=== PATIENT | female | born 1955 | race Caucasian/White ===

== ENCOUNTER → 2016-07-19 | Outpatient (CLI) | payer MEDICARE | LOC: RAD 07-18 12:47 | PROVIDERS: ATTEND Internal Medicine | DX: Z45.2 Encounter for adjustment and management of vascular access device (principal) | CPT/HCPCS: 76000 ==

== ENCOUNTER → 2016-09-20 | Outpatient (CLI) | payer MEDICARE | LOC: WI 08:51 | PROVIDERS: ATTEND Internal Medicine | DX: Z12.31 Encounter for screening mammogram for malignant neoplasm of breast (principal) | CPT/HCPCS: 77067; G0202 ==

== ENCOUNTER → 2016-10-15 | Outpatient (CLI) | payer MEDICARE, MEDICAID | LOC: RAD 06:30 | PROVIDERS: ATTEND Internal Medicine | DX: C7A.8 Other malignant neuroendocrine tumors (principal) | CPT/HCPCS: 36598; 71260; 74177; 82565 ==

== ENCOUNTER → 2017-04-01 | Outpatient (CLI) | payer MEDICARE, MEDICAID ==
--- NOTE | 2017-04-01 11:01 | RADIOLOGY REPORT (SQ) ---
EXAM DESCRIPTION: CT CHEST WITH COMPLETED DATE/TIME: 04/01/2017 10:16 am REASON FOR STUDY: NEUROENDOCRINE TUMORS (C7A.8) C7A.8 OTHER MALIGNANT NEUROENDOCRINE TUMORS COMPARISON: 10/15/2016 TECHNIQUE: CT scan of the chest performed using helical scanning technique with dynamic intravenous contrast injection. Images reviewed with lung, soft tissue and bone windows. Reconstructed coronal and sagittal MPR images reviewed. All images stored on PACS. All CT scanners at this facility use dose modulation, iterative reconstruction, and/or weight based d osing when appropriate to reduce radiation dose to as low as reasonably achievable (ALARA). [facility]: Dose Right [facility]: CareDose [facility]: Dose Right [facility]: Teradose 4D [facility]: [employer] CONTRAST TYPE AND DOSE: See separate report of the same date. Patient pre-medicated due to history o f contrast allergy. RENAL FUNCTION: BUN 16 creatinine 1.1 RADIATION DOSE: . LIMITATIONS: None. FINDINGS: LUNGS AND PLEURA: No nodules or masses. No effusions. HILAR AND MEDIASTINAL STRUCTURES: No identified masses or abnormal nodes. HEART AND VASCULAR STRUCTURES: No aneurysm or dissection. No central pulmonary emboli. No pericardi al effusion. HARDWARE: None in the chest. UPPER ABDOMEN: See separate report of the CT of the abdomen. THYROID AND OTHER SOFT TISSUES: No masses. No adenopathy. BONES: No significant finding. OTHER: Right-sided port with tip in the SVC. IMPRESSION: No evidence of metastatic disease. TECHNICAL DOCUMENTATION: JOB ID: [id number] Quality ID # [id number]: Final reports with documentation of one or more dose reduction techniques (e.g., Au tomated exposure control, adjustment of the mA and/or kV according to patient size, use of iterative reconstruction technique) 2010 [employer]- All Rights Reserved
--- NOTE | 2017-04-01 11:09 | RADIOLOGY REPORT (SQ) ---
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 TECHNIQUE: CT scan of the abdomen and pelvis performed using helical scanning technique with dynamic intravenous contrast injection. No oral contrast. Images reviewed with lung, soft tissue, and bone windows. Reconstructed coronal and sagittal MPR images reviewed. Delayed images for evaluation of the urinary system also acquired. All images stored on PACS. All CT scanners at this facility use dose modulation, iterative reconstruction, and/or weight based d osing when appropriate to reduce radiation dose to as low as reasonably achievable (ALARA). [facility]: Dose Right [facility]: CareDose [facility]: Dose Right [facility]: Teradose 4D [facility]: [employer] CONTRAST TYPE AND DOSE: contrast/concentration: Isovue 370.00 mg/ml; Total Contrast Delivered: 89.0 ml; Total Saline Delivered: 33.5 ml RENAL FUNCTION: See separate report of the same date. RADIATION DOSE: Up-to-date CT equipment and radiation dose reduction techniques were employed. CTDIv ol: 7.7 - 10.6 mGy. DLP: 1445 mGy-cm.. LIMITATIONS: Artifact from lumbar fusion. FINDINGS: LOWER CHEST: See separate report of the CT of the chest. LIVER: Normal size. Steatosis. No masses. No dilated ducts. SPLEEN: Normal size. No focal lesions. PANCREAS: No masses. No significant calcifications. No adjacent inflammation or peripancreatic fluid collections. Pancreatic duct not dilated. GALLBLADDER: No identified stones by CT criteria. No inflammatory changes to suggest cholecystitis. ADRENAL GLANDS: No significant masses or asymmetry. RIGHT KIDNEY AND URETER: No solid masses. No significant calcifications. No hydronephrosis or hyd roureter. LEFT KIDNEY AND URETER: No solid masses. No significant calcifications. No hydronephrosis or hydr oureter. AORTA AND VESSELS: No aneurysm. No dissection. Renal arteries, SMA, celiac without stenosis. RETROPERITONEUM: No retroperitoneal adenopathy, hemorrhage or masses. BOWEL AND PERITONEAL CAVITY: Small bowel anastomosis left lower quadrant. Sigmoid diverticulosis. N o masses or inflammatory changes. No free fluid or peritoneal masses. APPENDIX: Normal. PELVIS: No mass. No free fluid. Normal bladder. ABDOMINAL WALL: Small hiatal hernia. BONES: No acute findings. OTHER: No other significant finding. IMPRESSION: No evidence of metastatic disease. TECHNICAL DOCUMENTATION: JOB ID: [id number] Quality ID # [id number]: Final reports with documentation of one or more dose reduction techniques (e.g., Au tomated exposure control, adjustment of the mA and/or kV according to patient size, use of iterative reconstruction technique) 2010 [employer]- All Rights Reserved
== END ==
LOC: RAD 03-18 08:05
PROVIDERS: ATTEND Internal Medicine
DX: C7A.8 Other malignant neuroendocrine tumors (principal)
CPT/HCPCS: 71260; 74177

== ENCOUNTER → 2017-09-24 | Outpatient (CLI) | payer MEDICARE, MEDICAID ==
--- NOTE | 2017-09-24 10:58 | WOMENS IMAGING REPORT ---
EXAM DESCRIPTION: BILAT SCREENING MAMMO W/CAD COMPLETED DATE/TIME: 09/24/2017 9:57 am REASON FOR STUDY: ROUTINE SCREENING;Z12.31 Z12.31 ENCNTR SCREEN MAMMOGRAM FOR MALIGNANT NEOPLASM OF PASCUAL COMPARISON: 2017 TECHNIQUE: Standard craniocaudal and mediolateral oblique views of each breast recorded using digita l acquisition. LIMITATIONS: None. FINDINGS: No masses, calcifications or architectural distortion. No areas of suspicion. Read with the assistance of CAD. .[facility] - R2 Cenova Version 1.3 .[facility] Imaging - R2 Cenova Version 1.3 .[facility] Imaging - R2 Cenova Version 2.4 .[facility] - R2 Cenova Version 2.4 .[facility] - R2 Abnormal Psychology Teacher Version 9.2 IMPRESSION: NORMAL MAMMOGRAM. BIRADS 1. BREAST DENSITY: b. There are scattered areas of fibroglandular density. BIRAD: 1 NEGATIVE RECOMMENDATION: ROUTINE SCREENING COMMENT: The patient has been notified of the results by letter per SA requirements. Additional no tification policies are in place for contacting patient with suspicious or incomplete findings. Quality ID #225: The [employer] recommends an annual screening mammogram for women aged 40 years or over. This facility utilizes a reminder system to ensure that all patients receive reminder letters, and/or direct phone calls for appointments. This includes reminders for routine scr eening mammograms, diagnostic mammograms, or other Breast Imaging Interventions when appropriate. Th is patient will be placed in the appropriate reminder system. The [employer] (ACR) has developed recommendations for screening MRI of the breast s in certain patient populations, to be used in conjunction with mammography. Breast MRI surveillanc e may be appropriate for women with more than 20% lifetime risk of developing breast cancer as deter mined by genetic testing, significant family history of the disease, or history of mantle radiation f or Hodgkins Disease. ACR Practice Guidelines 2008. TECHNICAL DOCUMENTATION: FINDING NUMBER: (1) ASSESSMENT: (1) JOB ID: [id number] [employer]- All Rights Reserved Reading location - IP/workstation name: [facility]
== END ==
LOC: WI 10:17
PROVIDERS: ATTEND Physician Assistant
DX: Z12.31 Encounter for screening mammogram for malignant neoplasm of breast (principal)
CPT/HCPCS: 77067

== ENCOUNTER 2017-11-21 13:27 | Emergency (ER) | payer MEDICARE, MEDICAID ==
[2017-11-21] MEDS ORDERED: LORAZEPAM INJ 2 MG/1 ML VIAL IM ONE (14:25)
--- NOTE | 2017-11-21 14:28 | ER Document Report ---
ED Medical Screen (RME) - General Chief Complaint: Probable Seizure Stated Complaint: POSSIBLE SEIZURE Time Seen by Provider: 11/21/17 14:20 Notes: RAPID MEDICAL EVALUATION DISCLOSURE I have seen this patient as part of a Rapid Medical Evaluation and, if applicable, placed any initially appropriate orders. The patient will be seen and fully evaluated, including a full history and physical exam, by a provider ( in Main ED or Fast Track) when a room becomes available. 61-year-old female recently diagnosed with "co-seizures" and placed on Topamax "by my psychiatrist" here today because she was an outpatient radiology for an imaging study but started having 1 of her seizure-like episodes where her body starts to shake. She was confused afterwards and states that she still feels somewhat confused. One month ago she was seen at [facility] and apparently had multiple episodes with each one lasting approximately 30-45 minutes long. She maintains consciousness and is alert during these episodes, she reports. EXAM No intraoral lacerations or lesions Alert and oriented MDM Ativan IM ordered to prevent seizure activity here in ED TRAVEL OUTSIDE OF THE [place] IN LAST 30 DAYS: No - Related Data Allergies/Adverse Reactions: LIZETH Inhibitors Allergy (Verified 03/18/17 10:42) acetaminophen [From Percocet] Allergy (Verified 03/18/17 10:06) aspirin Allergy (Verified 03/18/17 10:04) baclofen Allergy (Verified 03/18/17 10:42) butorphanol [From Stadol] Allergy (Verified 03/18/17 10:06) ergocalciferol (vitamin D2) [From Vitamin D2] Allergy (Verified 03/18/17 10:38) hydrocodone Allergy (Verified 03/18/17 10:42) Iodinated Contrast- Oral and IV Dye Allergy (Verified 03/18/17 10:09) Iodine and Iodide Containing Produc Allergy (Verified 03/18/17 10:09) latex Allergy (Verified 03/18/17 10:42) levofloxacin [From Levaquin] Allergy (Verified 03/18/17 10:38) morphine Allergy (Verified 03/18/17 10:42) oxycodone [From Percocet] Allergy (Verified 03/18/17 10:06) Penicillins Allergy (Unverified 03/18/17 10:38) pentazocine [From Talwin] Allergy (Verified 03/18/17 10:38) propoxyphene [From Darvocet-N] Allergy (Verified 03/18/17 10:38) Quinolones Allergy (Verified 03/18/17 10:42) Sulfa (Sulfonamide Antibiotics) Allergy (Verified 03/18/17 10:07) tramadol Allergy (Verified 03/18/17 10:38) iv dye Allergy (Mild, Uncoded 03/18/17 10:03) acetaminophen Allergy (Uncoded 03/18/17 10:42) methadone Allergy (Uncoded 03/18/17 10:44) pentazocine Allergy (Uncoded 03/18/17 10:44) propoxyphene Allergy (Uncoded 03/18/17 10:44) soybean oil Allergy (Uncoded 03/18/17 10:42) white chalk Allergy (Uncoded 03/18/17 10:42) Physical Exam - Vital signs Vitals: Temp Pulse Resp BP Pulse Ox 97.9 F 78 18 110/79 97 11/21/17 13:40 11/21/17 13:40 11/21/17 13:40 11/21/17 13:40 11/21/17 13:40 Course - Vital Signs Vital signs: Temp Pulse Resp BP Pulse Ox 97.9 F 78 18 110/79 97 11/21/17 13:40 11/21/17 13:40 11/21/17 13:40 11/21/17 13:40 11/21/17 13:40
[2017-11-21 16:18] LABS: ABSOLUTE BASOPHILS # (AUTO) 0.1 10^3/uL (0.0-0.2); ABSOLUTE EOSINOPHILS # (AUTO) 0.2 10^3/uL (0.0-0.6); ABSOLUTE LYMPHOCYTES (AUTO) 2.6 10^3/uL (0.5-4.7); ABSOLUTE MONOCYTES (AUTO) 0.5 10^3/uL (0.1-1.4); ABSOLUTE NEUT (AUTO) 2.5 10^3/uL (1.7-8.2); BASOPHILS % (AUTO) 1.3 % (0-2); EOSINOPHILS % (AUTO) 3.4 % (0-6); HEMATOCRIT 34.5 % (36.0-47.0); HEMOGLOBIN 11.8 g/dL (12.0-15.5); LYMPHOCYTES % (AUTO) 44.5 % (13-45); MEAN CORPUSCULAR HEMOGLOBIN 28.9 pg (27.0-33.4); MEAN CORPUSCULAR HGB CONC 34.3 g/dL (32.0-36.0); MEAN CORPUSCULAR VOLUME 84 fl (80-97); MONOCYTES % (AUTO) 8.6 % (3-13); PLATELET COUNT 308 10^3/uL (150-450); RED BLOOD COUNT 4.09 10^6/uL (3.72-5.28); RED CELL DISTRIBUTION WIDTH 14.1 % (11.5-14.0); SEGMENTED NEUTROPHILS % (AUTO) 42.2 % (42-78); TOTAL CELLS COUNTED % (AUTO) 100 %; WHITE BLOOD COUNT 5.9 10^3/uL (4.0-10.5)
[2017-11-21 16:32] LABS: ANION GAP 11 (5-19); BLOOD UREA NITROGEN 14 mg/dL (7-20); CALCIUM 9.9 mg/dL (8.4-10.2); CARBON DIOXIDE 25 mmol/L (22-30); CHLORIDE 107 mmol/L (98-107); GLUCOSE 82 mg/dL (75-110); PHOSPHORUS 5.2 mg/dL (2.5-4.5); POTASSIUM 4.2 mmol/L (3.6-5.0); SODIUM 142.9 mmol/L (137-145)
[2017-11-21] MEDS ORDERED: NORMAL SALINE 500 ML IV ONE (16:37)
--- NOTE | 2017-11-21 16:40 | ER Document Report ---
ED General - General Chief Complaint: Probable Seizure Stated Complaint: POSSIBLE SEIZURE Time Seen by Provider: 11/21/17 14:20 Mode of Arrival: Ambulatory Information source: Patient Notes: This is a 61-year-old female with a history of carcinoid status post resection ( [facility] in 2009), chronic back pain (neurostimulator), seizures (on Topamax). the patient presents to the emergency room with seizures 3 today. She does state that she had a hospitalization a few months ago in [facility] for seizures in the CT showedactive seizure activity so she was not put on any medicines by the neurologist there. She states that she was put on Topamax by her psychiatrist. TRAVEL OUTSIDE OF THE [place] IN LAST 30 DAYS: No - HPI Onset: Just prior to arrival Onset/Duration: Gradual Quality of pain: No pain Severity: None Pain Level: Denies Associated symptoms: denies: Chest pain, Fever, Shortness of breath Exacerbated by: Denies Relieved by: Denies Similar symptoms previously: Yes Recently seen / treated by doctor: Yes - Related Data Allergies/Adverse Reactions: LIZETH Inhibitors Allergy (Verified 03/18/17 10:42) acetaminophen [From Percocet] Allergy (Verified 03/18/17 10:06) aspirin Allergy (Verified 03/18/17 10:04) baclofen Allergy (Verified 03/18/17 10:42) butorphanol [From Stadol] Allergy (Verified 03/18/17 10:06) ergocalciferol (vitamin D2) [From Vitamin D2] Allergy (Verified 03/18/17 10:38) hydrocodone Allergy (Verified 03/18/17 10:42) Iodinated Contrast- Oral and IV Dye Allergy (Verified 03/18/17 10:09) Iodine and Iodide Containing Produc Allergy (Verified 03/18/17 10:09) latex Allergy (Verified 03/18/17 10:42) levofloxacin [From Levaquin] Allergy (Verified 03/18/17 10:38) morphine Allergy (Verified 03/18/17 10:42) oxycodone [From Percocet] Allergy (Verified 03/18/17 10:06) Penicillins Allergy (Unverified 03/18/17 10:38) pentazocine [From Talwin] Allergy (Verified 03/18/17 10:38) propoxyphene [From Darvocet-N] Allergy (Verified 03/18/17 10:38) Quinolones Allergy (Verified 03/18/17 10:42) Sulfa (Sulfonamide Antibiotics) Allergy (Verified 03/18/17 10:07) tramadol Allergy (Verified 03/18/17 10:38) iv dye Allergy (Mild, Uncoded 03/18/17 10:03) acetaminophen Allergy (Uncoded 03/18/17 10:42) methadone Allergy (Uncoded 03/18/17 10:44) pentazocine Allergy (Uncoded 03/18/17 10:44) propoxyphene Allergy (Uncoded 03/18/17 10:44) soybean oil Allergy (Uncoded 03/18/17 10:42) white chalk Allergy (Uncoded 03/18/17 10:42) Past Medical History - General Information source: Patient - Social History Smoking Status: Never Smoker Cigarette use (# per day): No Chew tobacco use (# tins/day): No Frequency of alcohol use: None Drug Abuse: None Lives with: Family Family History: None Patient has suicidal ideation: No Patient has homicidal ideation: No - Past Medical History Cardiac Medical History: Reports: Hx Hypertension Neurological Medical History: Reports: Hx Migraine, Hx Seizures Renal/ Medical History: Denies: Hx Peritoneal Dialysis Psychiatric Medical History: Reports: Hx Depression Past Surgical History: Reports: Hx Abdominal Surgery - lap, Hx Bowel Surgery - cancer intestines, Hx Hysterectomy, Hx Orthopedic Surgery - right foot, back, Hx Tonsillectomy, Hx Tubal Ligation, Hx Vascular Surgery - right port Review of Systems - Review of Systems Constitutional: denies: Chills, Fever EENT: No symptoms reported Cardiovascular: No symptoms reported Respiratory: No symptoms reported Gastrointestinal: No symptoms reported Genitourinary: No symptoms reported Female Genitourinary: No symptoms reported Musculoskeletal: No symptoms reported Skin: No symptoms reported Hematologic/Lymphatic: No symptoms reported Neurological/Psychological: See HPI Physical Exam - Vital signs Vitals: Temp Pulse Resp BP Pulse Ox 97.9 F 78 18 110/79 97 11/21/17 13:40 11/21/17 13:40 11/21/17 13:40 11/21/17 13:40 11/21/17 13:40 Notes: Physical exam: GENERAL: 61-year-old female, alert and oriented 3, no acute distress HEAD: Atraumatic, normocephalic. EYES: Pupils equal round and reactive to light, extraocular movements intact, sclera anicteric, conjunctiva are normal. ENT: TMs normal, nares patent, oropharynx clear without exudates. Moist mucous membranes. NECK: Normal range of motion, supple without obvious mass or JVD. LUNGS: Breath sounds clear to auscultation bilaterally and equal. No wheezes rales or rhonchi. HEART: Regular rate and rhythm without murmurs, rubs or gallops. ABDOMEN: Soft, normoactive bowel sounds. No tenderness to palpation. No guarding, no rebound. No masses appreciated. EXTREMITIES: Normal range of motion, no pitting or edema. No clubbing or cyanosis. NEUROLOGICAL: Cranial nerves II through XII grossly intact. Normal speech, moving all extremities. PSYCH: Normal mood, normal affect. SKIN: Warm, Dry, normal turgor, no rashes or lesions noted. Course - Re-evaluation Re-evalutation: 11/21/17 22:46 I was called to the room because the patient was having a seizure. The patient was answering questions the whole time. Patient was observed in the ER on long and she appeared to do fine. She never had a true tonic-clonic seizure with loss of consciousness. Her vital signs have been stable. She has been afebrile. Her neurologic exam is been nonfocal. I have advised her to continue her medicines and follow-up with a neurologist for a second opinion. Daughter does see a neurologist at [place] and I suggested she try to go for a second opinion with this doctor. 11/21/17 22:47 - Vital Signs Vital signs: Temp Pulse Resp BP Pulse Ox 97.9 F 74 16 110/69 98 11/21/17 13:40 11/21/17 19:55 11/21/17 20:17 11/21/17 20:17 11/21/17 20:17 - Laboratory Result Diagrams: 11/21/17 15:58 11/21/17 15:58 Laboratory results interpreted by me: 11/21/17 11/21/17 15:58 15:58 Hgb 11.8 L Hct 34.5 L RDW 14.1 H Est GFR ( Amer) 55 L Est GFR (Non-Af Amer) 45 L Phosphorus 5.2 H - Diagnostic Test Radiology reviewed: Image reviewed, Reports reviewed - CT of the head shows no acute intra-cranial process - EKG Interpretation by Me Rate: Normal Rhythm: NSR - EKG shows normal sinus rhythm with a ventricular rate around 75. There is some artifact (possibly from the patient's neurostimulator). No acute ST-T wave changes. Discharge - Discharge Clinical Impression: Seizure Condition: Stable Disposition: HOME, SELF-CARE Additional Instructions: As we discussed, the head CT, and labs looked okay today. I do recommend you follow-up with the neurologist at [place] as planned. Bring a copy of the CT reports and lab results with you when you go to the neurologist. I also suggest you follow-up with the primary care doctor: Call the office tomorrow to be seen and bring a copy of the labs and CT report with you. Return to the emergency room for any concerns at the seizures are getting worse.
--- NOTE | 2017-11-21 18:05 | RADIOLOGY REPORT (SQ) ---
EXAM DESCRIPTION: CT HEAD WITHOUT COMPLETED DATE/TIME: 11/21/2017 5:52 pm REASON FOR STUDY: seizures COMPARISON: None. TECHNIQUE: Axial images acquired through the brain without intravenous contrast. Images reviewed wi th bone, brain and subdural windows. Images stored on PACS. All CT scanners at this facility use dose modulation, iterative reconstruction, and/or weight based d osing when appropriate to reduce radiation dose to as low as reasonably achievable (ALARA). [facility]: Dose Right [facility]: CareDose [facility]: Dose Right [facility]: Teradose 4D [facility]: [employer] RADIATION DOSE: CT Rad equipment meets quality standard of care and radiation dose reduction techniq ues were employed. CTDIvol: 53.2 mGy. DLP: 1017 mGy-cm. mGy. LIMITATIONS: None. FINDINGS: VENTRICLES: Normal size and contour. CEREBRUM: No masses. No hemorrhage. No midline shift. No evidence for acute infarction. Normal gra y/white matter differentiation. No areas of low density in the white matter. CEREBELLUM: No masses. No hemorrhage. No alteration of density. No evidence for acute infarction. EXTRAAXIAL SPACES: No fluid collections. No masses. ORBITS AND GLOBE: No intra- or extraconal masses. Normal contour of globe without masses. CALVARIUM: No fracture. PARANASAL SINUSES: No fluid or mucosal thickening. SOFT TISSUES: No mass or hematoma. OTHER: No other significant finding. IMPRESSION: NORMAL BRAIN CT WITHOUT CONTRAST. EVIDENCE OF ACUTE STROKE: NO. COMMENT: Quality ID # [id number]: Final reports with documentation of one or more dose reduction techniques (e.g., Automated exposure control, adjustment of the mA and/or kV according to patient size, use of iterative reconstruction technique) TECHNICAL DOCUMENTATION: JOB ID: [id number] [employer]- All Rights Reserved Reading location - IP/workstation name: [email or web address]
--- NOTE | 2017-11-21 18:26 | EKG REPORT ---
SEVERITY:- ABNORMAL ECG - SINUS TACHYCARDIA BORDERLINE LEFT AXIS DEVIATION BORDERLINE T ABNORMALITIES, ANTERIOR LEADS PROLONGED QT INTERVAL : Confirmed by: Trino Bustos MD 21-Nov-2017 18:25:34
[2017-11-21 20:35] VITALS: BP 110/69
== END 2017-11-21 20:36 | disposition home or self-care (01) ==
LOC: ER 13:27
DX: R56.9 Unspecified convulsions (principal); Z79.899 Other long term (current) drug therapy; M54.9 Dorsalgia, unspecified; G89.29 Other chronic pain; Z97.8 Presence of other specified devices; I10 Essential (primary) hypertension; Z88.8 Allergy status to other drugs, medicaments and biological substances; Z88.6 Allergy status to analgesic agent; Z88.5 Allergy status to narcotic agent; Z91.041 Radiographic dye allergy status; Z91.040 Latex allergy status; Z88.0 Allergy status to penicillin; Z88.2 Allergy status to sulfonamides; Z91.048 Other nonmedicinal substance allergy status; Z91.018 Allergy to other foods
CPT/HCPCS: 93005; 36591; 99285; 96372; 36415; 83735; 84100; 84443; 85025; 80048; 80201; 70450; 93010; J2060; J7040

== ENCOUNTER 2018-01-09 11:55 | Emergency (ER) | payer MEDICARE, MEDICAID ==
[2018-01-09] MEDS ORDERED: NORMAL SALINE 1000 ML 1,000 ML IV ONE (13:20)
[2018-01-09] MEDS ORDERED: LORAZEPAM INJ 2 MG/1 ML VIAL IV ONE (13:20)
--- NOTE | 2018-01-09 13:22 | ER Document Report ---
ED Seizure - General Chief Complaint: Probable Seizure Stated Complaint: POSSIBLE SEIZURES Time Seen by Provider: 01/09/18 13:01 Mode of Arrival: Medic Information source: Patient Notes: Pt is a 62 year old female who presents to the ER today via EMS from the oncologists office for witnessed seizures x 2 at the office today. She has a history of colon cancer and neuroendocrine cancer per Dr. Sharp, oncologist. She states she's been having these seizures for 2 months. She states she hasn't had any evaluation by any neurologist yet, although she has an appt to be admitted the end of this month at [facility] with her neurologist Dr. Reyes. She states she hasn't seen him yet. Pt cannot tell me what the seizures are like except to say that she shakes all over and is able to recall "everything everyone says" and repeat it to them after her seizure. She states she's on topamax that an ER doctor in [facility] put her on, that doesn't seem to be working because she is still having these seizures daily. She denies urinating on herself, headache or being tired after seizures. - Related Data Allergies/Adverse Reactions: LIZETH Inhibitors Allergy (Verified 01/09/18 12:08) acetaminophen [From Percocet] Allergy (Verified 01/09/18 12:08) aspirin Allergy (Verified 01/09/18 12:08) baclofen Allergy (Verified 01/09/18 12:08) butorphanol [From Stadol] Allergy (Verified 01/09/18 12:08) ergocalciferol (vitamin D2) [From Vitamin D2] Allergy (Verified 01/09/18 12:08) hydrocodone Allergy (Verified 01/09/18 12:08) Iodinated Contrast- Oral and IV Dye Allergy (Verified 01/09/18 12:08) Iodine and Iodide Containing Produc Allergy (Verified 01/09/18 12:08) latex Allergy (Verified 01/09/18 12:08) levofloxacin [From Levaquin] Allergy (Verified 01/09/18 12:08) morphine Allergy (Verified 01/09/18 12:08) oxycodone [From Percocet] Allergy (Verified 01/09/18 12:08) Penicillins Allergy (Verified 01/09/18 12:08) pentazocine [From Talwin] Allergy (Verified 01/09/18 12:08) propoxyphene [From Darvocet-N] Allergy (Verified 01/09/18 12:08) Quinolones Allergy (Verified 01/09/18 12:08) Sulfa (Sulfonamide Antibiotics) Allergy (Verified 01/09/18 12:08) tramadol Allergy (Verified 01/09/18 12:08) iv dye Allergy (Mild, Uncoded 01/09/18 12:08) acetaminophen Allergy (Uncoded 01/09/18 12:08) methadone Allergy (Uncoded 01/09/18 12:08) pentazocine Allergy (Uncoded 01/09/18 12:08) propoxyphene Allergy (Uncoded 01/09/18 12:08) soybean oil Allergy (Uncoded 01/09/18 12:08) white chalk Allergy (Uncoded 01/09/18 12:08) Past Medical History - General Information source: Patient - Social History Smoking Status: Unknown if Ever Smoked Family History: None - Past Medical History Cardiac Medical History: Reports: Hx Hypertension Neurological Medical History: Reports: Hx Migraine, Hx Seizures Renal/ Medical History: Denies: Hx Peritoneal Dialysis Psychiatric Medical History: Reports: Hx Depression Past Surgical History: Reports: Hx Abdominal Surgery - lap, Hx Bowel Surgery - cancer intestines, Hx Hysterectomy, Hx Orthopedic Surgery - right foot, back, Hx Tonsillectomy, Hx Tubal Ligation, Hx Vascular Surgery - right port Review of Systems - Review of Systems Constitutional: No symptoms reported EENT: No symptoms reported Cardiovascular: No symptoms reported Respiratory: No symptoms reported Gastrointestinal: No symptoms reported Genitourinary: No symptoms reported Female Genitourinary: No symptoms reported Musculoskeletal: No symptoms reported Skin: No symptoms reported Hematologic/Lymphatic: No symptoms reported Neurological/Psychological: See HPI Physical Exam - Vital signs Vitals: Temp Pulse Resp BP Pulse Ox 97.8 F 84 12 108/71 97 01/09/18 12:07 01/09/18 12:07 01/09/18 12:07 01/09/18 12:07 01/09/18 12:07 - Notes Notes: PHYSICAL EXAMINATION: GENERAL: well appearing, in no acute distress. HEAD: Atraumatic, normocephalic. EYES: Pupils equal round and reactive to light, extraocular movements intact, sclera anicteric, conjunctiva are normal. ENT: ear canals without erythema or foreign body, TMs pearly lai with good bony landmarks, nares patent, oropharynx clear without exudates. Moist mucous membranes. Airway patent NECK: Normal range of motion, supple without lymphadenopathy LUNGS: CTAB and equal. No wheezes rales or rhonchi. HEART: Regular rate and rhythm without murmurs ABDOMEN: Soft, no tenderness. No guarding, no rebound EXTREMITIES: Normal range of motion, no pitting edema. No cyanosis. NEUROLOGICAL: Cranial nerves grossly intact. Normal sensory/motor exams. Good and equal strength bilaterally, Kernig and Brudzinski's signs negative, Romberg' s test normal, normal heel to prater testing PSYCH: Normal mood, normal affect. SKIN: Warm, Dry, normal turgor, no rashes or lesions noted Course - Re-evaluation Re-evalutation: 01/09/18 16:51 Pt had seizure like activity while talking to me today with generalized shaking , repeated tapping of the left arm on her hip, equal leg shaking, and was able to answer questions during this activity. Her heart rate never increased, remained 85 on average the entire time, about 2 minutes. When I lifted her arm and put it over her face, she rotated it around her body and had full control, would not let her arm fall onto her face. Pt stopped shaking and immediately started talking to me about the admission coming up at [facility]. Was not postictal at all. I did speak with Dr. Pollock, neurologist senior applications engineer at [facility] for Dr. Reyes who states that pt has been there, has had multiple EEGs that have all been normal, including one in 08/18 where the patient had seizure like activity during but no EEG changes. Dr. Pollock advises no medication changes at this time. She wants pt to follow up at her schedule admission later this month to have a "further workup" performed. Pt denies sucidial or homicidal ideations. - Vital Signs Vital signs: Temp Pulse Resp BP Pulse Ox 98.0 F 84 18 105/94 H 100 01/09/18 15:01 01/09/18 12:07 01/09/18 15:01 01/09/18 15:00 01/09/18 15:01 Discharge - Discharge Clinical Impression: Seizure-like activity Condition: Stable Disposition: HOME, SELF-CARE Additional Instructions: Return immediately for any new or worsening symptoms. Follow up with your neurosurgeon, I did call him today, he advises that you come in for your scheduled admission later on in the month. He did not recommend any medication changes at this time.
--- NOTE | 2018-01-09 14:33 | RADIOLOGY REPORT (SQ) ---
EXAM DESCRIPTION: CT HEAD WITHOUT COMPLETED DATE/TIME: 01/09/2018 2:17 pm REASON FOR STUDY: seizure activity COMPARISON: CT brain 11/21/2017 TECHNIQUE: Axial images acquired through the brain without intravenous contrast. Images reviewed wi th bone, brain and subdural windows. Additional sagittal and coronal reconstructions were generated. Images stored on PACS. All CT scanners at this facility use dose modulation, iterative reconstruction, and/or weight based d osing when appropriate to reduce radiation dose to as low as reasonably achievable (ALARA). [facility]: Dose Right [facility]: CareDose [facility]: Dose Right [facility]: Teradose 4D [facility]: Consulted RADIATION DOSE: CT Rad equipment meets quality standard of care and radiation dose reduction techniq ues were employed. CTDIvol: 53.2 mGy. DLP: 1097 mGy-cm. mGy. LIMITATIONS: None. FINDINGS: VENTRICLES: Normal size and contour. CEREBRUM: No masses. No hemorrhage. No midline shift. No evidence for acute infarction. Benign ba alix ganglia calcifications. Normal zimmerman/white matter differentiation. No areas of low density in the white matter. CEREBELLUM: No masses. No hemorrhage. No alteration of density. No evidence for acute infarction. EXTRAAXIAL SPACES: No fluid collections. No masses. ORBITS AND GLOBE: No intra- or extraconal masses. Normal contour of globe without masses. CALVARIUM: No fracture. PARANASAL SINUSES: No fluid or mucosal thickening. SOFT TISSUES: No mass or hematoma. OTHER: No other significant finding. IMPRESSION: No acute findings EVIDENCE OF ACUTE STROKE: NO. COMMENT: Quality ID # 436: Final reports with documentation of one or more dose reduction techniques (e.g., Automated exposure control, adjustment of the mA and/or kV according to patient size, use of iterative reconstruction technique) TECHNICAL DOCUMENTATION: JOB ID: [id number] [employer]- All Rights Reserved Reading location - IP/workstation name: [email or web address]
[2018-01-09 15:20] VITALS: BP 105/94
== END 2018-01-09 15:32 | disposition home or self-care (01) ==
LOC: ER 11:55
DX: R56.9 Unspecified convulsions (principal); Z79.899 Other long term (current) drug therapy; I10 Essential (primary) hypertension; Z85.038 Personal history of other malignant neoplasm of large intestine; Z85.89 Personal history of malignant neoplasm of other organs and systems
CPT/HCPCS: 36591; 99284; 96361; 96374; 70450; J2060; J7030

== ENCOUNTER → 2018-04-22 | Outpatient (CLI) | payer MEDICARE, MEDICAID ==
--- NOTE | 2018-04-22 11:03 | RADIOLOGY REPORT (SQ) ---
EXAM DESCRIPTION: CT CHEST WITH; CT ABD/PELVIS WITH IV ORAL COMPLETED DATE/TIME: 04/22/2018 10:21 am REASON FOR STUDY: NEUROENDOCRINE TUMOR C7A.8 OTHER MALIGNANT NEUROENDOCRINE TUMORS RENAL FUNCTION: Patient gives a history of IV contrast allergy. She received oral premedications of Benadryl, prednisone, Zantac and Tylenol without immediate post contrast complications. Creatinine 1.3 TECHNIQUE: CT scan of the chest performed using helical scanning technique with dynamic intravenous contrast injection. Images reviewed with lung, soft tissue and bone windows. Reconstructed coronal a nd sagittal MPR images reviewed. All images stored on PACS. CT scan of the abdomen and pelvis performed with intravenous and without oral contrastusing helical s carlos technique with dynamic intravenous contrast injection. Images reviewed with lung, soft tissu e and bone windows. Reconstructed coronal and sagittal MPR images reviewed. Delayed images for eval uation of the urinary system also acquired and evaluated. All images stored on PACS. All CT scanners at this facility use dose modulation, iterative reconstruction, and/or weight based d osing when appropriate to reduce radiation dose to as low as reasonably achievable (ALARA). [facility]: Dose Right [facility]: CareDose [facility]: Dose Right [facility]: Teradose 4D [facility]: Smart Properati RADIATION DOSE: CT Rad equipment meets quality standard of care and radiation dose reduction techniq ues were employed. CTDIvol: 7.2 - 8.8 mGy. DLP: 1737 mGy-cm. . LIMITATIONS: None. FINDINGS: CHEST: LUNGS AND PLEURA: No opacities, nodules, masses. No pneumothorax. No effusions. HILAR AND MEDIASTINAL STRUCTURES: No identified masses or abnormal nodes. HEART AND VASCULAR STRUCTURES: No aneurysm or dissection. No central pulmonary emboli. No pericardi al effusion. HARDWARE: Right-sided permanent central line tip superior vena cava THYROID AND OTHER SOFT TISSUES: No masses. No adenopathy. BONES: No significant finding. OTHER: No other significant finding. ABDOMEN AND PELVIS: LIVER: Low-attenuation from diffuse fatty infiltration. No masses. No abnormal contrast enhancement SPLEEN: Normal size. No focal lesions. PANCREAS: No masses. No significant calcifications. No adjacent inflammation or peripancreatic fluid collections. Pancreatic duct not dilated. GALLBLADDER: No identified stones by CT criteria. No inflammatory changes to suggest cholecystitis. ADRENAL GLANDS: No significant masses or asymmetry. RIGHT KIDNEY AND URETER: No solid masses. No significant calcification. No hydronephrosis or hydroure ter. LEFT KIDNEY AND URETER: No solid masses. No significant calcification. No hydronephrosis or hydrouret er. AORTA AND VESSELS: No aneurysm. No dissection. Renal arteries, SMA, celiac without stenosis. RETROPERITONEUM: No retroperitoneal adenopathy, hemorrhage or masses. BOWEL AND PERITONEAL CAVITY: No CT evidence of bowel obstruction or free intraperitoneal air or fluid . Left lower quadrant bowel anastomotic anuj are present. Descending and sigmoid colon diverticu li without CT signs of acute diverticulitis APPENDIX: Surgically absent ABDOMINAL WALL: No masses. No hernias. PELVIS: No mass or free fluid. Normal bladder. Post hysterectomy BONES: Lower lumbar fusion OTHER: Battery pack for neurostimulator over the right buttock. Electrodes at the T8 through T10 lev el within the spinal canal IMPRESSION: No CT evidence of metastatic disease to the chest abdomen or pelvis given history of glory roendocrine tumor TECHNICAL DOCUMENTATION: JOB ID: [id number] Quality ID # [id number]: Final reports with documentation of one or more dose reduction techniques (e.g., Au tomated exposure control, adjustment of the mA and/or kV according to patient size, use of iterative reconstruction technique) 2010 [employer] All Rights Reserved COMPARISON: None. CT chest abdomen pelvis 04/01/2017, 10/15/2016 CONTRAST TYPE AND DOSE: contrast/concentration: Isovue 350.00 mg/ml; Total Contrast Delivered: 85.0 ml; Total Saline Delivered: 69.0 ml Reading location - IP/workstation name: [email or web address]
== END ==
LOC: RAD 09:28
PROVIDERS: ATTEND Internal Medicine
DX: C7A.8 Other malignant neuroendocrine tumors (principal)
CPT/HCPCS: 71260; 74177

== ENCOUNTER → 2018-10-09 | Outpatient (CLI) | payer MEDICAID, MEDICARE ==
--- NOTE | 2018-10-09 10:54 | WOMENS IMAGING REPORT ---
EXAM DESCRIPTION: BILAT SCREENING MAMMO W/CAD COMPLETED DATE/TIME: 10/09/2018 10:13 am REASON FOR STUDY: Z12.31 ENCOUNTER FOR SCREENING MAMMOGRAM FOR MALIGNANT NEOPLASM OF BREAST Z12.31 ENCNTR SCREEN MAMMOGRAM FOR MALIGNANT NEOPLASM OF PASCUAL COMPARISON: 2017, 2017 TECHNIQUE: Standard craniocaudal and mediolateral oblique views of each breast recorded using digita l acquisition. LIMITATIONS: Right-sided port. FINDINGS: No masses, calcifications or architectural distortion. No areas of suspicion. Read with the assistance of CAD. .[facility] - R2 [employer] Version 1.3 .[facility] - R2 Cenova Version 2.1 .[facility] - R2 Cenova Version 2.4 .[facility] - R2 Cenova Version 2.4 .[facility] - R2 Hand Miter Operator Version 9.2 IMPRESSION: NORMAL MAMMOGRAM. BIRADS 1. BREAST DENSITY: b. There are scattered areas of fibroglandular density. BIRAD: 1 NEGATIVE RECOMMENDATION: ROUTINE SCREENING COMMENT: The patient has been notified of the results by letter per MQSA requirements. Additional no tification policies are in place for contacting patient with suspicious or incomplete findings. Quality ID #225: The [employer] recommends an annual screening mammogram for women aged 40 years or over. This facility utilizes a reminder system to ensure that all patients receive reminder letters, and/or direct phone calls for appointments. This includes reminders for routine scr eening mammograms, diagnostic mammograms, or other Breast Imaging Interventions when appropriate. Th is patient will be placed in the appropriate reminder system. The [employer] (ACR) has developed recommendations for screening MRI of the breast s in certain patient populations, to be used in conjunction with mammography. Breast MRI surveillanc e may be appropriate for women with more than 20% lifetime risk of developing breast cancer as deter mined by genetic testing, significant family history of the disease, or history of mantle radiation f or Hodgkins Disease. ACR Practice Guidelines 2008. TECHNICAL DOCUMENTATION: FINDING NUMBER: (1) ASSESSMENT: (1) JOB ID: [id number] [employer]- All Rights Reserved Reading location - IP/workstation name: [email or web address]
== END ==
LOC: WI 09:28
PROVIDERS: ATTEND Physician Assistant
DX: Z12.31 Encounter for screening mammogram for malignant neoplasm of breast (principal)
CPT/HCPCS: 77067

== ENCOUNTER → 2019-11-17 | Outpatient (CLI) | payer MEDICARE ==
--- NOTE | 2019-11-18 11:40 | WOMENS IMAGING REPORT ---
EXAM DESCRIPTION: BILAT SCREENING MAMMO W/CAD IMAGES COMPLETED DATE/TIME: 11/17/2019 10:58 am REASON FOR STUDY: ROUTINE BILATERAL SCREENING;Z12.31 Z12.31 ENCNTR SCREEN MAMMOGRAM FOR MALIGNANT N EOPLASM OF PASCUAL COMPARISON: Multiple since 2017 EXAM PARAMETERS: Standard craniocaudal and mediolateral oblique views of each breast recorded using digital acquisition. Read with the assistance of CAD. .[facility] - [employer] Team Leader Version 9.2 LIMITATIONS: None. FINDINGS: Findings present which are benign by mammographic criteria. No suspicious masses, calcifi cations or architectural distortion. Pertinent benign findings: Benign bilateral breast parenchymal calcifications Benign mammographic findings may include one or more of the following: Smooth masses, popcorn/rim/co arse calcifications, asymmetries, post-procedure changes, and lesions with long-standing stability. IMPRESSION: BENIGN MAMMOGRAPHIC FINDINGS. BIRADS 2 BREAST DENSITY: b. There are scattered areas of fibroglandular density. BIRAD: ASSESSMENT: 2 BENIGN FINDING(S) RECOMMENDATION: ROUTINE SCREENING COMMENT: The patient has been notified of the results by letter per [place] requirements. Additional no tification policies are in place for contacting patient with suspicious or incomplete findings. Quality ID #225: The [employer] recommends an annual screening mammogram for women aged 40 years or over. This facility utilizes a reminder system to ensure that all patients receive reminder letters, and/or direct phone calls for appointments. This includes reminders for routine scr eening mammograms, diagnostic mammograms, or other Breast Imaging Interventions when appropriate. Th is patient will be placed in the appropriate reminder system. TECHNICAL DOCUMENTATION: FINDING NUMBER: (1) ASSESSMENT: (1) JOB ID: [id number] 2010 [email or web address]- All Rights Reserved Reading location - IP/workstation name: [email or web address]
== END ==
LOC: WI 09:27
PROVIDERS: ATTEND Physician Assistant
DX: Z12.31 Encounter for screening mammogram for malignant neoplasm of breast (principal)
CPT/HCPCS: 77067